=== PATIENT | male | born 1955 | race Caucasian/White ===

== ENCOUNTER 2019-08-15 19:02 | Emergency (ER) | payer MEDICARE | END 2019-08-15 19:35 | disposition home or self-care (01) | LOC: NAV ERS 19:02 | DX: S81.802A Unspecified open wound, left lower leg, initial encounter (principal); S81.801A Unspecified open wound, right lower leg, initial encounter; S61.401A Unspecified open wound of right hand, initial encounter; F10.129 Alcohol abuse with intoxication, unspecified; V49.9XXA Car occupant (driver) (passenger) injured in unspecified traffic accident, initial encounter | CPT/HCPCS: 36415 ==